=== PATIENT | female | born 1990 | race Caucasian/White ===

== ENCOUNTER 2019-01-14 05:46 | Day surgery (SDC) | payer BC ==
[2019-01-14] VITALS (8 sets, daily range): BP systolic 97–119; BP diastolic 56–83
[~2019-01-14] VITALS: Ht 157.5 cm; Wt 56.2 kg
[2019-01-14] MEDS ORDERED: LEVONORGESTREL1 EAC2 PO (06:36)
[2019-01-14] MEDS ORDERED: LR 1000ml 1,000 ML IVLG SCH ×2 (07:00→07:45)
[2019-01-14] MEDS ORDERED: Midazolam 2mg/2ml Inj ONE (07:05)
[2019-01-14] MEDS ORDERED: fentaNYL 100 mcg/2 mL IV ONE (07:05)
--- NOTE | 2019-01-14 07:24 | Pre-Procedure Note/Attestation ---
Pre-Procedure Note/Attestation Complete Prior to Procedure Planned Procedure: not applicable Procedure Narrative: Colonoscopy, possible biopsy, polypectomy, hemostasis, submucosal injection Indications for Procedure Pre-Operative Diagnosis: rectal bleeding Attestation I attest that I discussed the nature of the procedure; its benefits; risks and complications; and alternatives (and the risks and benefits of such alternatives ), prior to the procedure, with the patient (or the patient's legal food service sales representatives). I attest that, if there was a reasonable possibility of needing a blood transfusion, the patient (or the patient's legal food service sales representatives) was given the [facility] standardized written summary, pursuant to the [place] Blood Safety Act ([place] Health and Safety Code # 1645, as amended). I attest that I re-evaluated the patient just prior to the surgery and that there has been no change in the patient's H&P, except as documented below: Tyra Boss MD Jan 14, 2019 07:24
[2019-01-14] MEDS ORDERED: LR 1000ml ONE (07:30)
[2019-01-14] MEDS ORDERED: Propofol 200mg/20ml IV ONE (07:30)
--- NOTE | 2019-01-14 07:45 | Anethesia Preoperative Eval ---
Anesthesia Pre-op PMH/ROS General Date of Evaluation: Jan 14, 2019 Time of Evaluation: 07:28 Anesthesiologist: Israel ASA Score: ASA 2 Mallampati Score Class I : Soft palate, uvula, fauces, pillars visible Class II: Soft palate, uvula, fauces visible Class III: Soft palate, base of uvula visible Class IV: Only hard plate visible Mallampati Classification: Class II Surgeon: Karyn Diagnosis: Abdominal pain Surgical Procedure: Colonoscopy Anesthesia History: none Family History: no anesthesia problems Allergies: Coded Allergies: No Known Allergies (Unverified , 01/13/19) Medications: see eMAR Patient NPO?: Yes Past Medical History Cardiovascular: Denies: HTN, CAD, MT, valve dz, arrhythmia, other Pulmonary: Denies: asthma, COPD, ANA LILIA, other Gastrointestinal/Genitourinary: Reports: GERD, other - recurrent rectal bleeding; Denies: CRI, ESRD Neurologic/Psychiatric: Reports: depression/anxiety; Denies: dementia, CVA, TIA, other Endocrine: Denies: DM, hypothyroidism, steroids, other HEENT: Denies: cataract (L), cataract (R), glaucoma, [place] (L), [place] (R), other Hematology/Immune: Denies: anemia, DVT, bleeding disorder, other Musculoskeletal/Integumentary: Denies: OA, RA, DJD, DDD, edema, other PMH Narrative: as above PSxH Narrative: None Anesthesia Pre-op Phys. Exam Physician Exam Last Vital Signs Date Time Temp Pulse Resp B/P (MAP) Pulse Ox O2 Delivery O2 Flow Rate FiO2 01/14/19 06:33 97.9 94 20 102/69 100 Room Air Constitutional: NAD Neurologic: CN 2-12 intact Cardiovascular: RRR, no M/R/G Respiratory: CTA Gastrointestinal: S/NT/ND Airway Exam Mallampati Score: Class II MO: full Neck: flexible ROM: full Teeth: intact Dentures: no upper, no lower Anesthesia Pre-op A/P Labs Urine Test Test 01/14/19 05:55 Urine HCG, Qualitative Negative (NEGATIVE) Risk Assessment & Plan Assessment: ASA 2 Plan: MAC Status Change Before Surgery: No Pre-Antibiotics Drug: none Marky Wood MD Jan 14, 2019 07:45
--- NOTE | 2019-01-14 08:00 | Immediate Post-Op Evaluation ---
Immediate Post-Op Evalulation Immediate Post-Op Evalulation Procedure: Colonoscopy with Bx. Date of Evaluation: Jan 14, 2019 Time of Evaluation: 07:59 IV Fluids: 600 Blood Products: none Estimated Blood Loss: min Urinary Output: none Blood Pressure Systolic: 96 Blood Pressure Diastolic: 56 Pulse Rate: 78 Respiratory Rate: 20 O2 Sat by Pulse Oximetry: 97 Temperature (Fahrenheit): 97.3 Pain Score (1-10): 1 Nausea: No Vomiting: No Complications none Patient Status: awake, patent, none Hydration Status: adequate Marky Wood MD Jan 14, 2019 08:00
--- NOTE | 2019-01-14 16:45 | Operative Note - Dictated ---
DATE OF OPERATION: 01/14/2019 PREPROCEDURE DIAGNOSIS: Rectal bleeding. POSTPROCEDURE DIAGNOSES: Sigmoid polyp, healed posterior anal fissure, small internal hemorrhoids. PROCEDURES: Colonoscopy with cold forceps biopsy. SURGEON: Tyra Boss M.D. ANESTHESIOLOGIST: Marky Wood M.D. ANESTHESIA: Propofol sedation. INDICATION FOR PROCEDURE: The patient is a 28-year-old female, who was sent to my office by her yard laborer, Dr. Giovani Colindres for colorectal surgical evaluation of rectal bleeding and pain. The patient was found to have a posterior anal fissure, which was not symptomatic at that time. However, the patient reports prolonged bleeding, which occurs on and off. The patient has a family history of celiac disease in her mother and in light of her symptoms, it was determined to proceed with the colonoscopy. DESCRIPTION OF PROCEDURE: Upon consent of the patient, the patient brought to the procedure room, placed in the left lateral decubitus position. Once adequate sedation was established with propofol drip, a digital rectal exam was performed, which showed some small internal hemorrhoids and a healed posterior anal fissure. An Olympus colonoscope was advanced through the anus and into the rectum. The descending colon, splenic flexure, transverse colon, hepatic flexure, and the ascending colon were visualized. The cecum was easily reached. The ileocecal valve and appendiceal orifice were identified. The patient's prep was noted to be good. The terminal ileum was intubated and was noted to be normal. Multiple biopsies were taken of the terminal ilium, ascending colon, descending colon, and rectum. These were all sent off the field as separate specimens. Upon withdrawal of the scope, there was noted to be a small benign-appearing polyp in the sigmoid colon, which was removed with a cold forceps biopsy. This was sent off the field as specimen. Upon reaching the rectum, the colonoscope was retroflexed, and there was noted to be small internal hemorrhoids. The scope was straightened, air was evacuated from the rectum, and the colonoscope was removed. The patient was awakened from anesthesia and brought to postanesthesia recovery room in stable condition. There were no complications. IMPRESSION: Sigmoid polyp, small internal hemorrhoids, healed posterior anal fissure. Tyra Boss M.D. DR: LEANDRO JOB#: [id number] CC: Tyra Boss M.D.; Fax#: [phone] Soni Lemus M.D.
== END 2019-01-14 09:10 | disposition home or self-care (01) ==
LOC: GAS 05:46
DX: K63.5 Polyp of colon (principal); K64.8 Other hemorrhoids; K21.9 Gastro-esophageal reflux disease without esophagitis; F32.9 Major depressive disorder, single episode, unspecified; F41.9 Anxiety disorder, unspecified; Z83.79 Family history of other diseases of the digestive system
CPT/HCPCS: 45380; 81025; J2250; J2704; J3010; 94003; 94150